=== PATIENT | male | born 1975 | race African-American/Black ===

== ENCOUNTER → 2016-07-20 | Outpatient (CLI) | payer BC | END | disposition home or self-care (01) | LOC: C.RDSM 08:00 | PROVIDERS: ATTEND Physical Medicine & Rehabilitation Sports Medicine | DX: M79.672 Pain in left foot (principal) ==

== ENCOUNTER → 2016-07-27 | Outpatient (CLI) | payer BC ==
--- NOTE | 2016-07-27 09:04 | DIAGNOSTIC IMAGING REPORT ---
MRI LEFT ANKLE WITHOUT IV CONTRAST CLINICAL HISTORY: Left hindfoot pain. COMPARISON STUDY: Radiographs of the left foot dated 07/20/2016. TECHNIQUE: MRI of the left ankle is performed utilizing various T1 and T2-weighted sequences in the axial, sagittal, and coronal planes. IV contrast was not administered for this examination. FINDINGS: The skeletal structures of the ankle are normal in morphology and signal intensity. There is no MRI evidence of fracture or osteonecrosis. No osteochondral defect is identified in the talar dome. There is maintenance of normal fat within the sinus tarsi. The Achilles tendon is normal in morphology and signal intensity. The anterior, posterior, and peroneal tendons are normal. The anterior talofibular ligament is intact. The deltoid and spring ligaments are normal as visualized. No ankle joint effusion is seen. There is mild thickening and edema identified within the plantar fascia near the calcaneal insertion, slightly greater in the medial band than the lateral band. The appearance is consistent with mild plantar fasciitis. The regional musculature is normal in bulk and signal intensity. IMPRESSION: 1. Findings are consistent with mild plantar fasciitis, slightly greater in the medial band. 2. No bony abnormality is seen in the ankle. 3. The ankle tendons are preserved. Dictated: 07/27/2016 8:56 AM Transcribed: 07/27/2016 9:04 AM [place] Electronically signed by: Isidoro Alva M.D. 07/27/2016 9:14 AM Dictated Date/Time: 07/27/2016 8:56 AM
== END | disposition home or self-care (01) ==
LOC: C.MRI 07:36
PROVIDERS: ATTEND Physical Medicine & Rehabilitation Sports Medicine
DX: M79.672 Pain in left foot (principal); M72.2 Plantar fascial fibromatosis

== ENCOUNTER → 2017-09-24 | Outpatient (CLI) | payer OTHER ==
[2017-09-24 10:13] LABS: EOS ABS # 0.09 K/uL (0-0.5); HEMATOCRIT 43.8 % (42-52); HEMOGLOBIN 15.2 g/dL (14.0-18.0); IG# 0.01 K/uL (0.00-0.02); LYMPH % 37.7 %; LYMPH ABS # 1.68 K/uL (1.2-3.4); MEAN CELL VOLUME 88.5 fL (80-100); MEAN CORPUSCULAR HEMOGLOBIN 30.7 pg (25-34); MEAN CORPUSCULAR HGB CONC 34.7 g/dl (32-36); MEAN PLATELET VOLUME 10.1 fL (7.4-10.4); MONO % 5.8 %; MONO ABS # 0.26 K/uL (0.11-0.59); NEUT % 54.3 %; NEUT ABS # 2.42 K/uL (1.4-6.5); PLATELET COUNT 272 K/uL (130-400); RED CELL DISTRIBUTION WIDTH CV 13.3 % (11.5-14.5); WHITE BLOOD COUNT 4.46 K/uL (4.8-10.8)
[2017-09-24 10:53] LABS: ALBUMIN 4.1 gm/dl (3.4-5.0); ALT/SGPT 40 U/L (12-78); AST/SGOT 19 U/L (15-37); BLOOD UREA NITROGEN 14 mg/dl (7-18); CALCIUM 8.9 mg/dl (8.5-10.1); CARBON DIOXIDE 24 mmol/L (21-32); GLUCOSE 87 mg/dl (70-99); POTASSIUM 3.7 mmol/L (3.5-5.1); SODIUM 138 mmol/L (136-145)
[2017-09-24 10:55] LABS: ALKALINE PHOSPHATASE 59 U/L (45-117); CHOLESTEROL 149 mg/dl (0-200); LDL CHOLESTEROL CALCULATED 68 mg/dl; TOTAL PROTEIN 7.7 gm/dl (6.4-8.2)
== END | disposition home or self-care (01) ==
LOC: C.LAB1850 08:55
PROVIDERS: ATTEND Nurse Practitioner Family
DX: Z00.00 Encounter for general adult medical examination without abnormal findings (principal); Z13.1 Encounter for screening for diabetes mellitus; Z13.220 Encounter for screening for lipoid disorders; Z11.4 Encounter for screening for human immunodeficiency virus [HIV]; Z11.3 Encounter for screening for infections with a predominantly sexual mode of transmission